=== PATIENT | female | born 1955 | race Caucasian/White ===

== ENCOUNTER 2016-06-25 16:41 | Emergency (ER) | payer BC ==
[2016-06-25 16:45] VITALS: BP 134/71
[2016-06-25] MEDS ORDERED: Diphtheria,Pertussis(Acell),Tetanus Vaccine 0.5 ML Syringe IM ONE (17:00)
[2016-06-25] MEDS ORDERED: Acetaminophen/Codeine 300-30 MG Tab PO ONE (17:03)
--- NOTE | 2016-06-25 17:03 | EDM.PDOC ---
ED HPI Trauma - General Chief Complaint: Lower Extremity Injury/Pain Stated Complaint: PAIN LT FOOT Time Seen by Provider: 06/25/16 16:54 - History of Present Illness INITIAL COMMENTS - FREE TEXT/NARRATIVE: HISTORY AND PHYSICAL: History of present illness: Patient is a 61-year-old female who presents with complaints of pain to her left foot where she hit her foot into the corner of linoleum causing a puncture wound and pain to the area. She denies any neurosensory changes in the foot and there are no other injuries. She noticed diffuse swelling and discoloration and needs to stand on her feet so came for evaluation. There was initially some bleeding from the wound but that has since resolved. The patient's last tetanus shot was 7 years ago. Patient has a history of rectal cancer that has been in remission for the last 6 years Review of systems: As per history of present illness and below otherwise all systems reviewed and negative. Past medical history: As per history of present illness and as reviewed below otherwise noncontributory. Surgical history: As per history of present illness and as reviewed below otherwise noncontributory. Social history: No reported history of drug or alcohol abuse. Family history: As per history of present illness and as reviewed below otherwise noncontributory. Physical exam: General: Well-developed well-nourished female who is nontoxic and speaking clearly and easily in the ER and vital signs of been noted by me HEENT: Atraumatic, normocephalic, negative for conjunctival pallor or scleral icterus, mucous membranes moist, throat clear, neck supple, nontender, trachea midline. Lungs: Clear to auscultation, breath sounds equal bilaterally, chest nontender. Heart: S1S2, regular, negative for clicks, rubs, or JVD. Abdomen: Soft, nondistended, nontender. NABS Pelvis: Stable nontender. Genitourinary: Deferred. Rectal: Deferred. Extremities: Atraumatic except the dorsal lateral aspect of the foot where there is a 1 cm scab-like wounds with large area of soft tissue swelling/ surrounding ecchymosis/hematoma. There is no crepitus and no palpable bony deformities but there is tenderness in this region. There is no proximal bony pain or tenderness and distally neurovascular intact. The legs are, negative for cords or calf pain. Neurovascular unremarkable. Neuro: Awake, alert, oriented. Cranial nerves II through XII unremarkable. Cerebellum unremarkable. Motor and sensory unremarkable throughout. Exam nonfocal. Diagnostics: X-ray left foot Therapeutics: Tdap, Tylenol with Codeine Impression: Left foot contusion with puncture wound and hematoma stable Definitive disposition and diagnosis as appropriate pending reevaluation and review of above. 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) Other OB/BYN History: hot flushes Oncologic (Cancer) History: Reports: Other (see below) Other Oncologic History: rectal - Past Surgical History HEENT Surgical History: Reports: None Social & Family History - Tobacco Use Smoking Status *Q: Current Every Day Smoker Years of Tobacco use: 40 Packs/Tins Daily: 1.5 - Alcohol Use Days Per Week of Alcohol Use: 0 Number of Drinks Per Day: 0 Total Drinks Per Week: 0 - Recreational Drug Use Recreational Drug Use: No Drug Use in Last 12 Months: No Review of Systems - Review of Systems Review Of Systems: ROS reveals no pertinent complaints other than HPI. Trauma Exam - Physical Exam Exam: See Below (See dictation) Course - Vital Signs Last Recorded V/S: Last Vital Signs Temp 36.6 C 06/25/16 16:43 Pulse 97 06/25/16 16:43 Resp 16 06/25/16 16:43 BP 134/71 06/25/16 16:43 Pulse Ox 98 06/25/16 16:43 - Orders/Labs/Meds Orders: Active Orders 24 hr Category Date Time Status Vaccines to be Administered [RC] PER UNIT ROUTINE Care 06/25/16 17:00 Active Foot Comp Min 3V Lt [CR] Stat Exams 06/25/16 17:00 Taken Meds: Medications Discontinued Medications Generic Name Dose Route Start Last Admin Trade Name Freq PRN Reason Stop Dose Admin Acetaminophen/Codeine Phosphate 1 tab 06/25/16 17:03 06/25/16 17:39 Tylenol With Codeine No.3 300mg/30mg PO 06/25/16 17:04 1 tab ONETIME ONE Administration Diphtheria/Tetanus/Acell Pertussis 0.5 ml 06/25/16 17:00 06/25/16 17:39 Adacel IM 06/25/16 17:01 0.5 ml .ONCE ONE Administration Departure - Departure Time of Disposition: 18:02 Disposition: Home, Self-Care 01 Condition: good Clinical Impression: Contusion of foot, left Qualifiers: Encounter type: initial encounter Qualified Code(s): S90.32XA - Contusion of left foot, initial encounter Puncture wound of foot Qualifiers: Encounter type: initial encounter Laterality: left Qualified Code(s): S91.332A - Puncture wound without foreign body, left foot, initial encounter Forms: ED Department Discharge Additional Instructions: The following information is given to patients seen in the emergency department who are being discharged to home. This information is to outline your options for follow-up care. We provide all patients seen in our emergency department with a follow-up referral. The need for follow-up, as well as the timing and circumstances, are variable depending upon the specifics of your emergency department visit. If you don't have a primary care physician on staff, we will provide you with a referral. We always advise you to contact your personal physician following an emergency department visit to inform them of the circumstance of the visit and for follow-up with them and/or the need for any referrals to a consulting specialist. The emergency department will also refer you to a specialist when appropriate. This referral assures that you have the opportunity for followup care with a specialist. All of these measure are taken in an effort to provide you with optimal care, which includes your followup. Under all circumstances we always encourage you to contact your private physician who remains a resource for coordinating your care. When calling for followup care, please make the office aware that this follow-up is from your recent emergency room visit. If for any reason you are refused follow-up, please contact the [facility] emergency department at and ask to speak to the emergency department charge nurse. [facility] Primary care- Internal Medicine and Family [id number], [place] [address] Dr Jason Aviles [address] [facility] [address] [place] [address] [facility] Specialty clinic- Podiatry [address] [place] [address] Fax: [phone] Ice and elevate the area and wound clean and dry. Take antibiotics as directed and use pain medication as needed as well as [id number] Motrin. Please call and followup with primary care and/or the oil heater operator in the next 2 days and return to ER as needed and as discussed - My Orders Last 24 Hours: My Active Orders 06/25/16 17:00 Vaccines to be Administered [RC] PER UNIT ROUTINE Foot Comp Min 3V Lt [CR] Stat - Assessment/Plan Last 24 Hours: My Active Orders 06/25/16 17:00 Vaccines to be Administered [RC] PER UNIT ROUTINE Foot Comp Min 3V Lt [CR] Stat
[2016-06-25] MEDS ORDERED: Bacitracin Oint 1 GM U/D Packet TOP ONE (18:04)
--- NOTE | 2016-06-26 19:37 | CR ---
EXAM DATE: 06/25/16 PATIENT'S AGE: 61 Patient: ALEC RODRÍGUEZ Facility: [place], [place] Site . Site : 1955 Study: XRay Extremity Left [id number]/19/2017 5:16:19 PM Ordering Physician: Jeaneth Grullon Final Report: INDICATION: Trauma TECHNIQUE: Three views right foot COMPARISON: None FINDINGS: Bones: Alignment is normal. No fractures or bone lesions. Joint spaces: Degenerative changes MCP joint great toe. Soft tissues: Mild dorsal soft tissue edema adjacent to the base of the metatarsal bones. IMPRESSION: Mild dorsal soft tissue edema adjacent to the base of the metatarsal bones on lateral view. Dictated by Armando Martínez MD @ 06/25/2016 5:57:27 PM Dictated by: Armando Martínez MD @ 06/25/2016 17:57:34 (Electronic Signature) Report Signed by Proxy and Original Signed Document filed in the Medical Record. [facility] CENTERLamont
== END 2016-06-25 18:29 | disposition home or self-care (01) ==
LOC: MW.ED 16:41
DX: S91.332A Puncture wound without foreign body, left foot, initial encounter (principal); S90.32XA Contusion of left foot, initial encounter; F17.210 Nicotine dependence, cigarettes, uncomplicated; Z23 Encounter for immunization; W22.8XXA Striking against or struck by other objects, initial encounter
CPT/HCPCS: 73630; 90471; 90715; 99283; A9270

== ENCOUNTER 2017-02-21 12:16 | Day surgery (SDC) | payer BC ==
[~2017-02-21 12:16] MED LIST: Lactated Ringers 1,000 ML IV SCH; Lidocaine 2% 5 ML SDV ONE; Propofol 200 MG/20 ML SDV ONE; Sodium Chloride 0.9% 10 ML Syringe FLUSH PRN; Sodium Chloride 0.9% 2.5 ML Syringe FLUSH PRN; fentaNYL 100 MCG/2 ML SDV ONE
--- NOTE | 2017-02-21 14:28 | PCM.PREANE ---
Preanesthetic Assessment - Anesthesia/Transfusion/Family Hx Anesthesia History: Prior Anesthesia Without Reaction Other Type of Anesthesia Reaction Comment: Denies any known problem in past, "get little motion sickness" Family History of Anesthesia Reaction: No Transfusion History: No Prior Transfusion(s) - Review of Systems General: No Symptoms Pulmonary: No Symptoms Cardiovascular: No Symptoms Gastrointestinal: No Symptoms Neurological: No Symptoms Other: Reports: None - Physical Assessment NPO Status Date: 02/20/17 O2 Sat by Pulse Oximetry: 95 Respiratory Rate: 16 Vital Signs: Last Vital Signs Temp 36.2 C 02/21/17 14:04 Pulse 85 02/21/17 14:04 Resp 16 02/21/17 14:04 BP 128/77 02/21/17 14:04 Pulse Ox 95 02/21/17 14:04 Height: 1.5 m Weight: 64.864 kg ASA Class: 2 Mental Status: Alert & Oriented x3 Airway Class: Mallampati = 2 Dentition: Reports: Normal Dentition ROM/Head Extension: Full Lungs: Clear to Auscultation, Normal Respiratory Effort Cardiovascular: Regular Rate, Regular Rhythm - Allergies Allergies/Adverse Reactions: Allergies Allergy/AdvReac Type Severity Reaction Status Date / Time No Known Allergies Allergy Verified 02/15/17 13:37 - Anesthesia Plan Pre-Op Medication Ordered: None - Acknowledgements Anesthesia Type Planned: MAC Pt an Appropriate Candidate for the Planned Anesthesia: Yes Alternatives and Risks of Anesthesia Discussed w Pt/Guardian: Yes Pt/Guardian Understands and Agrees with Anesthesia Plan: Yes PreAnesthesia Questionnaire HEENT History: Reports: None Other HEENT History: wears contacts, has upper denture Cardiovascular History: Reports: Hypertension Gastrointestinal History: Reports: Colon Polyp Other Gastrointestinal History: hx of cancer of the rectum (had chemo and radiation) 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 (See Below) Other OB/BYN History: hot flushes Musculoskeletal History: Reports: Fracture Other Musculoskeletal History: hx of fx toe Neurological History: Reports: Headaches, Chronic Oncologic (Cancer) History: Reports: Other (See Below) Other Oncologic History: rectal - Past Surgical History HEENT Surgical History: Reports: None - SUBSTANCE USE Smoking Status *Q: Current Every Day Smoker Tobacco Use Within Last Twelve Months: Cigarettes Days Per Week of Alcohol Use: 0 Number of Drinks Per Day: 0 Total Drinks Per Week: 0 Recreational Drug Use History: No - HOME MEDS Home Medications: Home Meds Venlafaxine [Effexor] 75 mg PO DAILY 05/21/14 [History] Estradiol Acetate [Femring] 1 applic VAG ASDIRECTED 02/15/17 [History] Hydrochlorothiazide 12.5 mg PO DAILY 02/15/17 [History] - CURRENT (IN HOUSE) MEDS Current Meds: Current Medications Lactated Ringer's (Ringers, Lactated) 1,000 mls @ 125 mls/hr IV ASDIRECTED MEREDITH Last Admin: 02/21/17 14:06 Dose: 125 mls/hr Sodium Chloride (Saline Flush) 10 ml FLUSH ASDIRECTED PRN PRN Reason: Keep Vein Open Sodium Chloride (Saline Flush) 2.5 ml FLUSH ASDIRECTED PRN PRN Reason: Keep Vein Open Discontinued Medications Fentanyl (Sublimaze) Confirm Administered Dose 100 mcg .ROUTE .STK-MED ONE Stop: 02/21/17 09:50 Lidocaine (Xylocaine-Mpf 2%) Confirm Administered Dose 5 ml .ROUTE .STK-MED ONE Stop: 02/21/17 09:49 Propofol (Diprivan 20 Ml) Confirm Administered Dose 400 mg .ROUTE .STK-MED ONE Stop: 02/21/17 09:50 Sodium Chloride (Saline Flush) 10 ml FLUSH ASDIRECTED PRN PRN Reason: Keep Vein Open
[2017-02-21] MEDS ORDERED: Propofol 200 MG/20 ML SDV ONE (14:59)
--- NOTE | 2017-02-21 15:08 | PCM.OPNOTE ---
- General Post-Op/Procedure Note Date of Surgery/Procedure: 02/21/17 Findings: 2-3 mm polyp at hepatic flexure, 1-2 mm polyp in distal sigmoid colon. Pre Op Diagnosis: History of rectal cancer Post-Op Diagnosis: Hepatic flexure polyp, sigmoid polyp Anesthesia Technique: MAC Primary Surgeon: Oralia Taylor Condition: Good
--- NOTE | 2017-02-21 15:16 | PCM.POSTAN ---
POST ANESTHESIA ASSESSMENT - MENTAL STATUS Mental Status: Alert, Oriented - RESPIRATORY Respiratory Status: Respiratory Rate WNL, Airway Patent, O2 Saturation Stable - CARDIOVASCULAR CV Status: Pulse Rate WNL, Blood Pressure Stable - GASTROINTESTINAL GI Status: No Symptoms - POST OP HYDRATION Hydration Status: Adequate & Stable
--- NOTE | 2017-02-21 15:28 | PCM48HPAN ---
Post Anesthesia Note - EVALUATION WITHIN 48HRS OF ANESTHETIC Vital Signs in Normal Range: Yes Patient Participated in Evaluation: Yes Respiratory Function Stable: Yes Airway Patent: Yes Cardiovascular Function Stable: Yes Hydration Status Stable: Yes Pain Control Satisfactory: Yes Nausea and Vomiting Control Satisfactory: Yes Mental Status Recovered: Yes
[2017-02-21 16:26] VITALS: BP 135/76
--- NOTE | 2017-02-21 19:43 | OR ---
SURGEON: ORALIA TAYLOR MD DATE OF PROCEDURE: 02/21/2017 PREOPERATIVE DIAGNOSIS: History of rectal cancer. POSTOPERATIVE DIAGNOSES: Hepatic flexure polyp and distal sigmoid colon polyp. PROCEDURE PERFORMED: Diagnostic colonoscopy. ENDOSCOPIST: Dr. Oralia Taylor. ANESTHESIA: MAC INSTRUMENT USED: Olympus colonoscope. EXTENT OF EXAM: To the cecum. PREPARATION: Good. LIMITATIONS: None. INDICATION FOR EXAMINATION: The patient is a 62-year-old female with a history of rectal cancer. She is here for followup colonoscopy. We discussed the procedure as well as expected perioperative course. We discussed the risks, including bleeding, infection, or damage to surrounding structures, including perforation. The patient verbalized understanding and wishes to proceed. PROCEDURE IN DETAIL: The patient was brought into the endoscopy suite and placed in the left lateral decubitus position. A time-out was completed verifying the patient's name, age, date of , allergies, and procedure to be performed. After adequate sedation was achieved, a digital rectal exam was performed. This exam was within normal limits. A well lubricated colonoscope was then inserted into the rectum and advanced under direct visualization to the level of cecum. The cecum was identified by both visual and anatomic landmarks. A photograph was taken of the cecal cap as well as with the scope retroflexed within the cecum. The scope was then fully withdrawn while examining the color, texture, anatomy, and integrity of the mucosa from the cecum to the anal canal. The patient was found to have a 2 to 3 mm polyp at the level of the hepatic flexure as well as a 1 to 2 mm polyp in the distal sigmoid colon. These were both removed using a cold biopsy forceps and sent to pathology. The remainder of the colon appeared normal. The scope was then retroflexed within the rectum, which allowed visualization of the anal canal opening. This appeared normal and a photograph was taken. The scope was then straightened out and removed from the patient. The cecum to anus time was 11 minutes. The patient tolerated the procedure well and was taken to PACU in stable condition. ENDOSCOPIC DIAGNOSES: 1. Hepatic flexure polyp. 2. Distal sigmoid colon polyp. RECOMMENDATION: Follow up in clinic in 2 weeks. NAIMA ROYAL /[id number]
== END 2017-02-21 15:45 | disposition home or self-care (01) ==
LOC: MW.SDS 12:16
PROVIDERS: ATTEND Surgery
DX: Z12.11 Encounter for screening for malignant neoplasm of colon (principal); K63.5 Polyp of colon; D12.3 Benign neoplasm of transverse colon; I10 Essential (primary) hypertension; F17.210 Nicotine dependence, cigarettes, uncomplicated; Z86.010 Personal history of colon polyps; Z85.048 Personal history of other malignant neoplasm of rectum, rectosigmoid junction, and anus; Z79.818 Long term (current) use of other agents affecting estrogen receptors and estrogen levels; Z79.899 Other long term (current) drug therapy; Z90.710 Acquired absence of both cervix and uterus; Z98.890 Other specified postprocedural states
CPT/HCPCS: 45380; J3010; J7120; 88305; J2704

== ENCOUNTER 2019-01-04 18:15 | Emergency (ER) | payer BC ==
[2019-01-04] MEDS ORDERED: Sodium Chloride 0.9% 2.5 ML Syringe FLUSH PRN (18:31)
[2019-01-04] MEDS ORDERED: Sodium Chloride 0.9% 1,000 ML IV ONE (18:31)
[2019-01-04] MEDS ORDERED: Sodium Chloride 0.9% 10 ML Syringe FLUSH PRN (18:31)
--- NOTE | 2019-01-04 18:38 | EDM.PDOC ---
ED HPI GENERAL MEDICAL PROBLEM - General Chief Complaint: Abdominal Pain Stated Complaint: DIZZY/NAUSEA Time Seen by Provider: 01/04/19 18:37 Source of Information: Reports: Patient History Limitations: Reports: No Limitations - History of Present Illness INITIAL COMMENTS - FREE TEXT/NARRATIVE: HISTORY AND PHYSICAL: History of present illness: Patient is a 63-year-old female presents to the ED with complaint of lightheadedness and vomiting. She states it has been going on for the past month , she has seen Dr. Lucio for this and states she had abnormal thyroid labs and was started on a medication for this. She also notes having a thyroid ultrasound done. She states today she feels more lightheaded and has vomited 6 times today. She states it is worse with head movements and change in position. She denies head injury, dizziness, fevers, chills, chest pain, shortness of breath, abdominal pain, diarrhea, syncope. She states she's had steroid injections in her neck, last time being 1.5 months ago in [place]. She states she does have an appointment with Dr. Jacobson in 1 weeks. Review of systems: As per history of present illness and below otherwise all systems reviewed and negative. Past medical history: As per history of present illness and as reviewed below otherwise noncontributory. Surgical history: As per history of present illness and as reviewed below otherwise noncontributory. Social history: No reported history of drug or alcohol abuse. Family history: As per history of present illness and as reviewed below otherwise noncontributory. Physical exam: General: Patient sitting comfortably in no acute distress and nontoxic appearing HEENT: Atraumatic, normocephalic, pupils reactive, negative for conjunctival pallor or scleral icterus, mucous membranes moist, throat clear, neck supple, nontender, trachea midline. No meningeal signs. Lungs: Clear to auscultation, breath sounds equal bilaterally, chest nontender. Heart: S1S2, regular, negative for clicks, rubs, or overt murmur. Abdomen: Soft, nondistended, nontender. Negative for masses or hepatosplenomegaly. Negative for costovertebral tenderness. No rigidity, rebound , guarding. Pelvis: Stable nontender. Genitourinary: Deferred. Rectal: Deferred. Extremities: Atraumatic, negative for cords or calf pain. Neurovascular unremarkable. Neuro: Awake, alert, oriented. Cranial nerves II through XII unremarkable. Cerebellum unremarkable. Motor and sensory unremarkable throughout. Exam nonfocal. Notes: Diagnostics: CBC, CMP, troponin, EKG, CXR, Head CT, cervical CT Therapeutics: 1L NS IV 4mg Zofran IV Prescriptions: Zofran ODT Impression: Lightheadedness, vomiting Plan: Take zofran as needed for nausea/vomiting Follow up with primary care provider Return to ED as needed as discusse Definitive disposition and diagnosis as appropriate pending reevaluation and review of above. Head Pain Score (Numeric/FACES): 7 - Related Data Allergies Allergy/AdvReac Type Severity Reaction Status Date / Time No Known Allergies Allergy Verified 01/04/19 18:36 Home Meds: Home Meds Venlafaxine [Effexor] 75 mg PO DAILY 05/21/14 [History] Estradiol Acetate [Femring] 1 applic VAG ASDIRECTED 02/15/17 [History] Hydrochlorothiazide 12.5 mg PO DAILY 02/15/17 [History] Ondansetron [Zofran ODT] 4 mg PO Q6H PRN #10 tab.dis 01/04/19 [Rx] Past Medical History HEENT History: Reports: None Other HEENT History: wears contacts, has upper denture Cardiovascular History: Reports: Hypertension Gastrointestinal History: Reports: Colon Polyp Other Gastrointestinal History: hx of cancer of the rectum (had chemo and radiation) PARISH VISITOR History: Reports: Other (See Below) Other PARISH VISITOR History: hot flushes Musculoskeletal History: Reports: Fracture Other Musculoskeletal History: hx of fx toe Neurological History: Reports: Headaches, Chronic Oncologic (Cancer) History: Reports: Other (See Below) Other Oncologic History: rectal - Past Surgical History HEENT Surgical History: Reports: None Female Surgical History: Reports: Section, Hysterectomy ED ROS GENERAL - Review of Systems Review Of Systems: ROS reveals no pertinent complaints other than HPI. ED EXAM, GI/ABD - Physical Exam Exam: See Below (see dictation) Course - Vital Signs Last Recorded V/S: Last Vital Signs Temp 96.3 F 01/04/19 18:37 Pulse 82 01/04/19 19:59 Resp 16 01/04/19 19:24 BP 138/70 01/04/19 19:59 Pulse Ox 99 01/04/19 19:59 Orthostatic Blood Pressure [] 164/90 Orthostatic Blood Pressure [] 161/92 Orthostatic Blood Pressure [] 144/74 - Orders/Labs/Meds Orders: Active Orders 24 hr Category Date Time Status Cardiac Monitoring [RC] . DIRECTED Care 01/04/19 18:31 Active EKG Documentation Completion [RC] STAT Care 01/04/19 18:31 Active Sodium Chloride 0.9% [Saline Flush] Med 01/04/19 18:31 Active 10 ml FLUSH ASDIRECTED PRN Sodium Chloride 0.9% [Saline Flush] Med 01/04/19 18:31 Active 2.5 ml FLUSH ASDIRECTED PRN Saline Lock Insert [OM.PC] Stat Oth 01/04/19 18:31 Ordered Medication Orders Sodium Chloride (Saline Flush) 10 ml FLUSH ASDIRECTED PRN PRN Reason: Keep Vein Open Last Admin: 01/04/19 18:43 Dose: 10 ml Sodium Chloride (Saline Flush) 2.5 ml FLUSH ASDIRECTED PRN PRN Reason: Keep Vein Open Last Admin: 01/04/19 18:43 Dose: 2.5 ml Labs: Laboratory Tests 01/04/19 01/04/19 01/04/19 Range/Units 18:35 18:35 18:35 WBC 9.42 (4.0-11.0) K/uL RBC 4.75 (4.30-5.90) M/uL Hgb 15.3 (12.0-16.0) g/dL Hct 45.5 (36.0-46.0) % MCV 95.8 (80.0-98.0) fL MCH 32.2 H (27.0-32.0) pg MCHC 33.6 (31.0-37.0) g/dL RDW Std Deviation 48.4 (28.0-62.0) fl RDW Coeff of Rahel 14 (11.0-15.0) % Plt Count 285 (150-400) K/uL MPV 9.90 (7.40-12.00) fL Neut % (Auto) 64.9 (48.0-80.0) % Lymph % (Auto) 27.9 (16.0-40.0) % [place] % (Auto) 5.6 (0.0-15.0) % Eos % (Auto) 1.2 (0.0-7.0) % Baso % (Auto) 0.4 (0.0-1.5) % Neut # (Auto) 6.1 H (1.4-5.7) K/uL Lymph # (Auto) 2.6 H (0.6-2.4) K/uL [place] # (Auto) 0.5 (0.0-0.8) K/uL Eos # (Auto) 0.1 (0.0-0.7) K/uL Baso # (Auto) 0.0 (0.0-0.1) K/uL Nucleated RBC % 0.0 /100WBC Nucleated RBCs # 0 K/uL INR 0.92 Sodium 145 (136-145) mmol/L Potassium 3.5 (3.5-5.1) mmol/L Chloride 106 (98-107) mmol/L Carbon Dioxide 24.7 (21.0-32.0) mmol/L BUN 14 (7.0-18.0) mg/dL Creatinine 1.0 (0.6-1.0) mg/dL Est Cr Clr Drug Dosing 41.90 mL/min Estimated GFR (MDRD) 56.2 ml/min Glucose 120 H (74-106) mg/dL Calcium 9.5 (8.5-10.1) mg/dL Total Bilirubin 0.3 (0.2-1.0) mg/dL AST 12 L (15-37) IU/L ALT 23 (14-63) IU/L Alkaline Phosphatase 67 (46-116) U/L Troponin I < 0.050 (0.000-0.056) ng/mL Total Protein 7.5 (6.4-8.2) g/dL Albumin 4.1 (3.4-5.0) g/dL Globulin 3.4 (2.6-4.0) g/dL Albumin/Globulin Ratio 1.2 (0.9-1.6) Meds: Medications Generic Name Dose Route Start Last Admin Trade Name Freq PRN Reason Stop Dose Admin Sodium Chloride 10 ml 01/04/19 18:31 01/04/19 18:43 Saline Flush FLUSH 10 ml ASDIRECTED PRN Administration Keep Vein Open Sodium Chloride 2.5 ml 01/04/19 18:31 01/04/19 18:43 Saline Flush FLUSH 2.5 ml ASDIRECTED PRN Administration Keep Vein Open Discontinued Medications Generic Name Dose Route Start Last Admin Trade Name Freq PRN Reason Stop Dose Admin Sodium Chloride 1,000 mls @ 999 mls/hr 01/04/19 18:31 01/04/19 18:43 Normal Saline IV 01/04/19 19:31 999 mls/hr BOLUS ONE Administration Ondansetron HCl 4 mg 01/04/19 19:03 01/04/19 19:21 Zofran IVPUSH 01/04/19 19:04 4 mg ONETIME ONE Administration Departure - Departure Time of Disposition: 20:00 Disposition: Home, Self-Care 01 Condition: Good Clinical Impression: Lightheadedness, Vomiting - Discharge Information Prescriptions: Ondansetron [Zofran ODT] 4 mg PO Q6H PRN #10 tab.dis PRN Reason: Nausea/Vomiting Referrals: PCP,None [Primary Care Provider] - Forms: ED Department Discharge Additional Instructions: The following information is given to patients seen in the emergency department who are being discharged to home. This information is to outline your options for follow-up care. We provide all patients seen in our emergency department with a follow-up referral. The need for follow-up, as well as the timing and circumstances, are variable depending upon the specifics of your emergency department visit. If you don't have a primary care physician on staff, we will provide you with a referral. We always advise you to contact your personal physician following an emergency department visit to inform them of the circumstance of the visit and for follow-up with them and/or the need for any referrals to a consulting specialist. The emergency department will also refer you to a specialist when appropriate. This referral assures that you have the opportunity for follow-up care with a specialist. All of these measure are taken in an effort to provide you with optimal care, which includes your follow-up. Under all circumstances we always encourage you to contact your private physician who remains a resource for coordinating your care. When calling for follow-up care, please make the office aware that this follow-up is from your recent emergency room visit. If for any reason you are refused follow-up, please contact the [facility] Emergency Department at and asked to speak to the emergency department charge nurse. [facility] [address] [place] [address] [facility] [address] [place] [address] Take zofran as needed for nausea/vomiting Follow up with primary care provider Return to ED as needed as discusse - My Orders Last 24 Hours: My Active Orders 01/04/19 18:31 Cardiac Monitoring [RC] . DIRECTED EKG Documentation Completion [RC] STAT Sodium Chloride 0.9% [Saline Flush] 10 ml FLUSH ASDIRECTED PRN Sodium Chloride 0.9% [Saline Flush] 2.5 ml FLUSH ASDIRECTED PRN Saline Lock Insert [OM.PC] Stat - Assessment/Plan Last 24 Hours: My Active Orders 01/04/19 18:31 Cardiac Monitoring [RC] . DIRECTED EKG Documentation Completion [RC] STAT Sodium Chloride 0.9% [Saline Flush] 10 ml FLUSH ASDIRECTED PRN Sodium Chloride 0.9% [Saline Flush] 2.5 ml FLUSH ASDIRECTED PRN Saline Lock Insert [OM.PC] Stat
[2019-01-04] MEDS ORDERED: Ondansetron 4 MG/2 ML SDV IVPUSH ONE (19:03)
[2019-01-04 19:12] LABS: BLOOD UREA NITROGEN,BUN 14 mg/dL (7.0-18.0); CARBON DIOXIDE,CO2 24.7 mmol/L (21.0-32.0); CHLORIDE,CL 106 mmol/L (98-107); GLUCOSE RANDOM 120 mg/dL (74-106); POTASSIUM,K 3.5 mmol/L (3.5-5.1); SODIUM,NA 145 mmol/L (136-145)
--- NOTE | 2019-01-04 19:29 | CR ---
Indication: Chest pain. Dizziness Technique: Chest 1 view Comparison: 06/05/2018 Findings/Impression: Cardiovascular and mediastinum: Stable cardiomediastinal silhouette. Lungs and pleural space: Lungs are clear. No sign of infiltrate or mass. No sign of pleural effusion. No pneumothorax. Bones and soft tissues: No significant findings. Dictated by Tito Knox MD @ 01/04/2019 7:28:03 PM Dictated by: Tito Knox MD @ 01/04/2019 19:28:09 (Electronically Signed)
--- NOTE | 2019-01-04 19:44 | CT ---
INDICATION: Dizziness TECHNIQUE: CT head without contrast. COMPARISON: None FINDINGS: CSF spaces: Within normal limits for age. Brain parenchyma: The mcbride-white differentiation is normal. No sign of mass, hemorrhage, or midline shift. Skull base and calvarium: The visualized paranasal sinuses and mastoid air cells demonstrate no acute or significant findings. The visualized orbits are grossly unremarkable. No skull fractures. IMPRESSION: Unremarkable noncontrast head CT. Dictated by Armando Martínez MD @ 01/04/2019 7:43:27 PM Please note that all CT scans at this facility use dose modulation, iterative reconstruction, and/or weight-based dosing when appropriate to reduce radiation dose to as low as reasonably achievable. Dictated by: Armando Martínez MD @ 01/04/2019 19:43:30 (Electronically Signed)
--- NOTE | 2019-01-04 19:47 | CT ---
INDICATION: Dizziness TECHNIQUE: CT cervical spine without contrast. COMPARISON: None FINDINGS: Vertebral alignment: Alignment is normal. Vertebrae: There are no fractures or suspicious bony lesions. Discs and facet joints: Mild degenerative changes C5 through C7. Extraspinal findings: Prevertebral soft tissues, visualized airway, and visualized lungs are unremarkable. IMPRESSION: Mild degenerative changes C5 through C7. Dictated by Armando Martínez MD @ 01/04/2019 7:45:26 PM Please note that all CT scans at this facility use dose modulation, iterative reconstruction, and/or weight-based dosing when appropriate to reduce radiation dose to as low as reasonably achievable. Dictated by: Armando Martínez MD @ 01/04/2019 19:45:32 (Electronically Signed)
[2019-01-04 19:59] VITALS: BP 138/70; PULSE 82
== END 2019-01-04 20:35 | disposition home or self-care (01) ==
LOC: MW.ED 18:15
DX: R42 Dizziness and giddiness (principal); R11.10 Vomiting, unspecified; I10 Essential (primary) hypertension; Z79.899 Other long term (current) drug therapy
CPT/HCPCS: 36415; 70450; 71045; 72125; 80053; 84484; 85025; 85610; 93005; 96361; 96374; 99284; J2405; J7040

== ENCOUNTER 2020-06-09 07:34 | Day surgery (SDC) | payer BC ==
[~2020-06-09 07:34] MED LIST changes: -Lidocaine 2% 5 ML SDV ONE; +Sodium Chloride 0.9% 10 ML SDV IV PRN; -fentaNYL 100 MCG/2 ML SDV ONE
--- NOTE | 2020-06-09 08:28 | PCM.PREANE ---
Preanesthetic Assessment - Anesthesia/Transfusion/Family Hx Anesthesia History: Prior Anesthesia Without Reaction Other Type of Anesthesia Reaction Comment: Denies any known problem in past, "get little motion sickness" Family History of Anesthesia Reaction: No Transfusion History: No Prior Transfusion(s) Intubation History: Unknown - Review of Systems General: No Symptoms Pulmonary: No Symptoms Cardiovascular: No Symptoms Gastrointestinal: No Symptoms, Other (h/o rectal cancer and hepatic flexure poly p) Neurological: No Symptoms Other: Reports: None - Physical Assessment Vital Signs: Last Vital Signs Temp 36.4 C 06/09/20 08:09 Pulse 82 06/09/20 08:09 Resp 16 06/09/20 08:09 BP 114/59 L 06/09/20 08:09 Pulse Ox 96 06/09/20 08:09 Height: 4 ft 11 in Weight: 65.771 kg ASA Class: 3 Mental Status: Alert & Oriented x3 Airway Class: Mallampati = 2 Dentition: Reports: Dentures (upper and lower, two teeth left in lower jaw) Thyro-Mental Finger Breadths: 3 Mouth Opening Finger Breadths: 3 ROM/Head Extension: Limited/Partial Lungs: Clear to Auscultation, Normal Respiratory Effort Cardiovascular: Regular Rate, Regular Rhythm - Allergies Allergies/Adverse Reactions: Allergies Allergy/AdvReac Type Severity Reaction Status Date / Time No Known Allergies Allergy Verified 06/09/20 08:11 - Blood Blood Available: No - Anesthesia Plan Pre-Op Medication Ordered: None - Acknowledgements Anesthesia Type Planned: MAC Pt an Appropriate Candidate for the Planned Anesthesia: Yes Alternatives and Risks of Anesthesia Discussed w Pt/Guardian: Yes Pt/Guardian Understands and Agrees with Anesthesia Plan: Yes PreAnesthesia Questionnaire HEENT History: Reports: Other (See Below) Other HEENT History: wears glasses/contacts, has upper and lower dentures Cardiovascular History: Reports: High Cholesterol, Hypertension Respiratory History: Reports: Other (See Below) Other Respiratory History: 1 PPD smoker for 40 years Gastrointestinal History: Reports: Colon Polyp Other Gastrointestinal History: hx of cancer of the rectum (had chemo and radiation) 11 years ago, tubular adenoma of hepatic flexure 3 years ago Genitourinary History: Reports: Renal Calculus Other Genitourinary History: hx of passing kidney stones FLATWORK FINISHER History: Reports: Other OB/BYN History: hot flushes Musculoskeletal History: Reports: Fracture, Neck Pain, Chronic, Other (See Below) (chronic pain syndrome) Other Musculoskeletal History: DDD of cervical and lumbar regions, hx of fx toe and clavicle Neurological History: Reports: Other (See Below) Other Neuro History: hx of cervical degenerative disc disease Endocrine/Metabolic History: Reports: Hypothyroidism Oncologic (Cancer) History: Reports: Colon Other Oncologic History: rectal - Infectious Disease History Infectious Disease History: Reports: None - Past Surgical History Head Surgeries/Procedures: Reports: None HEENT Surgical History: Reports: Tonsillectomy GI Surgical History: Reports: Colonoscopy (about 20 per patient) Other GI Surgeries/Procedures: had Chemo and Radiation for colon cancer- no surgery Female Surgical History: Reports: Section (x3), Hysterectomy Neurological Surgical History: Reports: C-Spine, Spinal Fusion Other Neurological Surgeries/Procedures: has hardware in neck - SUBSTANCE USE Tobacco Use Status *Q: Current Every Day Tobacco User (1ppd) Tobacco Use Within Last Twelve Months: Cigarettes Recreational Drug Use History: No - HOME MEDS Home Medications: Home Meds Venlafaxine [Effexor] 75 mg PO BEDTIME 05/21/14 [History] Estradiol Acetate [Femring] 1 applic VAG ASDIRECTED 02/15/17 [History] Cyclobenzaprine HCl 0.5 - 1 tab PO BEDTIME PRN 06/03/20 [History] Levothyroxine Sodium [Unithroid] 50 mcg PO BEDTIME 06/03/20 [History] Losartan Potassium 50 mg PO BEDTIME 06/03/20 [History] atorvaSTATin Calcium [Atorvastatin Calcium] 20 mg PO BEDTIME 06/03/20 [History] traMADol HCl [Tramadol HCl] 50 mg PO ASDIRECTED PRN 06/03/20 [History] - CURRENT (IN HOUSE) MEDS Current Meds: Current Medications Lactated Ringer's (Ringers, Lactated) 1,000 mls @ 125 mls/hr IV ASDIRECTED MEREDITH Last Admin: 06/09/20 07:48 Dose: 125 mls/hr Documented by: Sodium Chloride (Saline Flush) 2.5 ml FLUSH ASDIRECTED PRN PRN Reason: Keep Vein Open Sodium Chloride (Normal Saline) 10 ml IV ASDIRECTED PRN PRN Reason: IV Use Discontinued Medications Lidocaine HCl (Xylocaine-Mpf 1%) Confirm Administered Dose 5 ml .ROUTE .STK-MED ONE Stop: 06/09/20 06:27 Propofol (Diprivan 20 Ml) Confirm Administered Dose 400 mg .ROUTE .STK-MED ONE Stop: 06/09/20 06:29
[2020-06-09] MEDS ORDERED: Propofol 200 MG/20 ML SDV ONE (11:47)
[2020-06-09 12:27] VITALS: PULSE 70
[2020-06-09 12:44] VITALS: BP 124/70
--- NOTE | 2020-06-09 12:44 | PCM.POSTAN ---
POST ANESTHESIA ASSESSMENT - MENTAL STATUS Mental Status: Alert, Oriented - VITAL SIGNS Vital Signs: Last Vital Signs Temp 36.4 C 06/09/20 08:09 Pulse 70 06/09/20 12:27 Resp 15 06/09/20 12:27 BP 124/69 06/09/20 12:27 Pulse Ox 96 06/09/20 12:27 - RESPIRATORY Respiratory Status: Respiratory Rate WNL, Airway Patent, O2 Saturation Stable - CARDIOVASCULAR CV Status: Pulse Rate WNL, Blood Pressure Stable - GASTROINTESTINAL GI Status: No Symptoms - PAIN Pain Score: 0 - POST OP HYDRATION Hydration Status: Adequate & Stable - OBSERVATIONS Free Text/Narrative:: No anesthesia problems
--- NOTE | 2020-06-09 13:10 | PCM48HPAN ---
Post Anesthesia Note - EVALUATION WITHIN 48HRS OF ANESTHETIC Vital Signs in Normal Range: Yes Patient Participated in Evaluation: Yes Respiratory Function Stable: Yes Airway Patent: Yes Cardiovascular Function Stable: Yes Hydration Status Stable: Yes Pain Control Satisfactory: Yes Nausea and Vomiting Control Satisfactory: Yes Mental Status Recovered: Yes Vital Signs: Last Vital Signs Temp 36.3 C 06/09/20 12:35 Pulse 70 06/09/20 12:35 Resp 14 06/09/20 12:35 BP 124/70 06/09/20 12:35 Pulse Ox 94 L 06/09/20 12:35 - COMMENTS/OBSERVATIONS Free Text/Narrative:: No anesthesia problems
--- NOTE | 2020-06-09 15:12 | PCM.OPNOTE ---
- General Post-Op/Procedure Note Date of Surgery/Procedure: 06/09/20 Operative Procedure(s): Diagnostic colonoscopy Findings: cecal polyp x 2, hepatic flexure polyp x 1, transverse colon polyp x 1, descending colon polyp x 4, sigmoid colon polyp x 2, rectal polyp x 1 Pre Op Diagnosis: History of rectal cancer Post-Op Diagnosis: cecal polyp x 2, hepatic flexure polyp x 1, transverse colon polyp x 1, descending colon polyp x 4, sigmoid colon polyp x 2, rectal polyp x 1 [place] [facility]geon: Oralia Taylor Condition: Good Free Text/Narrative:: Intake & Output 06/09/20 06/09/20 06/09/20 06:59 14:59 22:59 Intake Total 600 Balance 600
--- NOTE | 2020-06-10 15:18 | OR ---
SURGEON: ORALIA TAYLOR MD DATE OF PROCEDURE: 06/09/2020 PREOPERATIVE DIAGNOSIS: History of rectal cancer and colon polyps. POSTOPERATIVE DIAGNOSES: 1. Cecal polyp x2. 2. Hepatic flexure polyp x1. 3. Transverse colon polyp x1. 4. Descending colon polyp x4. 5. Sigmoid colon polyp x2. 6. Rectal polyp x1. PROCEDURE PERFORMED: Diagnostic colonoscopy with polypectomy. PRIMARY SURGEON: Oralia Taylor MD ANESTHESIA: MAC. INSTRUMENT USED: Olympus colonoscope. EXTENT OF EXAM: To the cecum. PREPARATION: Good. LIMITATIONS: None. INDICATIONS FOR EXAMINATION: The patient is a 65-year-old female with a past medical history significant for rectal cancer. She had a scope 3 years ago, which showed colon polyps. She is here for repeat colonoscopy. I explained the procedure, expected perioperative course, and the risks. She verbalized understanding and wishes to proceed. PROCEDURE IN DETAIL: The patient was brought into the endoscopy suite and placed in the left lateral decubitus position. A time-out was completed verifying the patient's name, age, date of , allergies, and procedure to be performed. Monitored anesthesia care was induced and continuous oxygen was provided via nasal cannula throughout the procedure. After adequate sedation was achieved, a digital rectal exam was performed. This exam was within normal limits. A well-lubricated colonoscope was inserted in the rectum and advanced under direct visualization to the level of the cecum. The cecum was identified by both visual and anatomic landmarks. A photograph was taken of the cecal cap as well as with the scope retroflexed within the cecum. The scope was then fully withdrawn while examining the color, texture, anatomy, and integrity of the mucosa from the cecum to the anal canal. The patient was found to have multiple sessile polyps throughout the colon. There were two in the vicinity of the cecum. They were removed in piecemeal fashion using cold biopsy forceps. She had a small polyp at the hepatic flexure removed in a similar fashion as well as one in the transverse colon. In the descending colon, the patient had four different polyps. Two of these were removed using a hot snare. There were two polyps within the sigmoid colon and one in the rectum. The remainder of the polyps were removed using cold biopsy forceps. The anastomotic line in the rectum appeared normal with no evidence of any abnormal tissue over the anastomotic line. I retroflexed the scope within the rectum to allow visualization of the anal canal opening and this appeared normal. The scope was straightened out and fully withdrawn. The cecum to anus time was 43 minutes. The patient tolerated the procedure well and was transferred to the PACU in stable condition. ENDOSCOPIC DIAGNOSES: 1. Cecal polyp x2. 2. Hepatic flexure polyp x1. 3. Transverse colon polyp x1. 4. Descending colon polyp x4. 5. Sigmoid colon polyp x2. 6. Rectal polyp x1. RECOMMENDATIONS: Follow up in clinic in 2 weeks. NAIMA ROYAL /[id number]
== END 2020-06-09 12:58 | disposition home or self-care (01) ==
LOC: MW.SDS 07:34
PROVIDERS: ATTEND Surgery
DX: Z12.11 Encounter for screening for malignant neoplasm of colon (principal); D12.0 Benign neoplasm of cecum; D12.3 Benign neoplasm of transverse colon; D12.4 Benign neoplasm of descending colon; D12.5 Benign neoplasm of sigmoid colon; K62.1 Rectal polyp; G89.4 Chronic pain syndrome; F17.210 Nicotine dependence, cigarettes, uncomplicated; E78.00 Pure hypercholesterolemia, unspecified; I10 Essential (primary) hypertension; Z85.048 Personal history of other malignant neoplasm of rectum, rectosigmoid junction, and anus; Z79.899 Other long term (current) drug therapy; Z98.890 Other specified postprocedural states
CPT/HCPCS: 45380; 45385; 88305; 88309; 88311; 88312; 88313; 88314; J2704; J7120

== ENCOUNTER 2021-07-19 08:19 | Day surgery (SDC) | payer MEDICARE, BC ==
[~2021-07-19 08:19] MED LIST changes: -Propofol 200 MG/20 ML SDV ONE; -Sodium Chloride 0.9% 10 ML SDV IV PRN; +Sodium Chloride 0.9% 20 ML SDV IV PRN
[2021-07-19] MEDS ORDERED: fentaNYL 100 MCG/2 ML SDV ONE (09:22)
[2021-07-19] MEDS ORDERED: Propofol 200 MG/20 ML SDV ONE (09:22)
[2021-07-19 11:19] VITALS: BP 110/59; PULSE 95
== END 2021-07-19 11:40 | disposition home or self-care (01) ==
LOC: MW.SDS 08:19
PROVIDERS: ATTEND Surgery
DX: D12.5 Benign neoplasm of sigmoid colon (principal); K62.1 Rectal polyp; E78.00 Pure hypercholesterolemia, unspecified; I10 Essential (primary) hypertension; F17.210 Nicotine dependence, cigarettes, uncomplicated; E03.9 Hypothyroidism, unspecified; Z85.038 Personal history of other malignant neoplasm of large intestine
CPT/HCPCS: 45380; J2704; J3010; J7120; 00811; 88305